=== PATIENT | female | born 1985 | race Caucasian/White ===

== ENCOUNTER → 2022-07-14 11:00 | Outpatient (BNVA) | payer BC, SELFPAY | PROVIDERS: PCP Family Medicine; Visit Provider Family Medicine | DX: Z13.6 Encounter for screening for cardiovascular disorders (principal) | CPT/HCPCS: 80053; 80061; 84443; 85025 ==

== ENCOUNTER → 2022-09-15 12:13 | Outpatient (BNVA) | payer BC, MEDICAID, SELFPAY | PROVIDERS: PCP Family Medicine; Visit Provider Family Medicine | DX: M25.549 Pain in joints of unspecified hand | CPT/HCPCS: 80053; 82728; 83550; 85025; 85651; 86038; 86140; 86200; 86431 ==

== ENCOUNTER 2023-01-15 11:42 | Emergency (ER) | payer BC, MEDICAID, SELFPAY ==
[2023-01-15 12:11] VITALS: BP 160/82; PULSE 91; RESP 14; TEMP 36.6; O2SAT 95; BMI 32.8
--- NOTE | 2023-01-15 13:41 | W.ED.HA ---
HPI - Headache General: Chief Complaint: Headache Stated Complaint: headache Time Seen by Provider: 01/15/23 13:12 History of Present Illness: This 37-year-old female with a history of migraine headaches presents to the ER with headache that started a little over 12 hours ago. Patient woke up from sleep with a migraine. It was so severe that all she could do was sleep. There is associated photophobia and phonophobia. She took a 10 mg THC gummy and it provided no relief. Typically, it helps with her headache. Patient denies fever but has nausea with no vomiting. There is no neck stiffness. Associated symptoms: Deny chest pain or lightheadedness Review of Systems Const: Denies: chills, body aches or change in appetite Eyes: Denies: change in vision or eye discharge ENMT: Denies: throat pain, dental pain or nasal discharge Card: Denies: chest pain or lightheadedness : Denies: dysuria Musc: Denies: neck pain or back pain Neuro: Reports: headache(s); Denies: weakness in extremities Psych: Denies: depression Siddharth/Lymph: Denies: easy bruising All/Imm: Denies: urticaria, tongue swelling or facial swelling PFSH ED PFSH: Medical History (Updated 01/15/23 @ 15:26 by Milka Jerome MD) Bipolar disorder Fibromyalgia Hernia, umbilical History of migraine headaches Post traumatic stress disorder Psychiatric care Surgical History History of cholecystectomy Family History Father , suicide Suicide Mother Hypertension Cancer colon, skin, breast Brother Diabetes Social History Smoking and tobacco status: current every day smoker Physical Exam Const: COMMON NORMALS: patient oriented x3, no limitations and alert NUTRITIONAL APPEARANCE: obese OTHER: Mild distress due to headache. HENMT: COMMON NORMALS: normocephalic HEAD & SCALP: normocephalic Eye: COMMON NORMALS: EOMs intact bilaterally Neck/C-Spine: COMMON NORMALS: full ROM and supple Chest: COMMONS NORMALS: normal inspection of the chest Resp: COMMON NORMALS: normal respiratory effort, No retractions, No use of accessory muscles and clear to auscultation bilaterally AUSCULTATION: clear to auscultation bilaterally Cardio: COMMON NORMALS: regular rate, regular rhythm and No murmurs present (Cardio) RATE: regular rate RHYTHM: regular rhythm GI: COMMON NORMALS: Normal to inspection, nondistended, normoactive bowel sounds present and non-tender : COMMON NORMALS: Yes no CVA tenderness BLADDER/KIDNEY EXAM: Yes no CVA tenderness Back/Pelvis: COMMON NORMALS: no CVA tenderness and no thoracic nor lumbar tenderness Extremity: GENERAL: Yes normal exam except as noted Neuro: COMMON NORMALS: patient oriented x3 and no focal motor deficits SENSORIUM/ORIENTATION: Yes alert Psych: COMMON NORMALS: mental status grossly normal and cooperative Course Vital Signs: Vital signs: Vital Signs Temperature 97.8 F 01/15/23 12:11 Pulse Rate 91 01/15/23 12:11 Respiratory Rate 14 01/15/23 12:11 Blood Pressure 160/82 01/15/23 12:11 Pulse Oximetry 95 01/15/23 12:11 Oxygen Delivery Me thod Room Air 01/15/23 12:11 MDM - Headache Medical Decision Making Medical decision making: Patient has a history of migraine headaches and presents to the ER with migraine that started a little over 12 hours ago. After receiving migraine cocktail, she felt considerably better and wanted to go home. She was advised on rest, maintaining adequate fluid intake and following up with her primary care physician. Reasons to return were discussed. All radiology interpretation(s) finalized by discharge Discharge Plan Discharge Patient Disposition: Home Clinical Impression: Migraine headache Condition: Stable Prescriptions: New Imitrex 25 mg tablet See Rx Instructions PO .COMPLEX Qty: 20 0RF Rx Instructions: take 1 tab at onset of headache; if no relief may repeat 1 tab after at least 2 hrs; max = 4 tabs/24 hr ketorolac 10 mg tablet 10 mg PO Q6H PRN (Reason: pain) 1 Days Qty: 20 0RF No Action Azo Bladder Control 300 mg Capsule 1 cap PO BID lamotrigine 200 mg tablet 200 mg PO QNOON venlafaxine 150 mg capsule,extended release 24hr 150 mg PO QNOON Discharge Orders: Discharge ED (Routine); Ordered 01/15/23 Ordered By: Milka Jerome Referrals: Jennifer Moy DO [Primary Care Provider] - Discharge Diet: Usual diet Discharge Activity: Resume usual activity Patient Instructions: Opioid Safety, Pain Management Activity Restrictions/Additional Instructions: Rest. Maintain adequate hydration. Take Imitrex and ketorolac as prescribed. Follow-up with your primary care physician within a week for reevaluation. Return with new or worsening symptoms. Coding Level of Care Code ED [employer] for Darcy Cifuentes
[2023-01-15] MEDS: sodium chloride 0.9% 1,000 ML 999 ML IV (14:02)
[2023-01-15] MEDS: metoclopramide 5 mg/mL SDV 2 mL 10 MG IVP (14:03)
[2023-01-15] MEDS: ketorolac 30 mg/mL INJ IVP (14:05)
[2023-01-15] MEDS: methylPREDNISolone sod succ 125 MG in water for injection-sterile 2 ML 24 MG IVP (14:10)
[2023-01-15] MEDS: SUMAtriptan 6 mg/0.5 mL SDV SUBCUT (14:11)
== END 2023-01-15 15:37 | disposition home or self-care (01) ==
PROVIDERS: Emergency Provider Family Medicine; PCP Family Medicine
DX: G43.909 Migraine, unspecified, not intractable, without status migrainosus (principal); F17.210 Nicotine dependence, cigarettes, uncomplicated
CPT/HCPCS: 96372; 96374; 96375; 99284; J1885; J2765; J2930; J3030; J7030

== ENCOUNTER → 2023-05-20 09:01 | Outpatient (BNVA) | payer BC, SELFPAY | PROVIDERS: PCP Family Medicine; Visit Provider Psychiatry & Neurology Psychiatry | DX: F33.0 Major depressive disorder, recurrent, mild (principal); Z79.899 Other long term (current) drug therapy | CPT/HCPCS: 80061; 83036 ==